=== PATIENT | male | born 2000 | race Two or more races ===

== ENCOUNTER 2020-07-31 20:01 | Emergency (ER) | payer MEDICAID, OTHER ==
[~2020-07-31] VITALS: Ht 175.3 cm; Wt 63.5 kg
[2020-07-31 21:00] VITALS: BP 107/67
[2020-07-31] MEDS ORDERED: KETOROLAC TROMETH 60MG/2ML VIAL IM ONE (22:30)
== END 2020-07-31 23:12 | disposition home or self-care (01) ==
LOC: ER 20:03
DX: G44.209 Tension-type headache, unspecified, not intractable (principal); E86.0 Dehydration
CPT/HCPCS: 70450; 96372; 99284; J1885

== ENCOUNTER 2021-11-19 04:18 | Emergency (ER) | payer MEDICAID ==
[~2021-11-19] VITALS: Ht 175.3 cm; Wt 63.5 kg
[2021-11-19] MEDS ORDERED: ACETAMINOPHEN 500 MG TAB PO ONE (04:45)
[2021-11-19] MEDS ORDERED: BENZOCAINE (DENTAL) 20 % SPRAY 60ML MT ONE (04:45)
[2021-11-19] MEDS ORDERED: KETOROLAC TROMETH 60MG/2ML VIAL IM ONE (04:45)
[2021-11-19 04:50] VITALS: BP 144/85
== END 2021-11-19 06:02 | disposition home or self-care (01) ==
LOC: ER 04:18
DX: S02.5XXA Fracture of tooth (traumatic), initial encounter for closed fracture (principal); F17.210 Nicotine dependence, cigarettes, uncomplicated; F12.10 Cannabis abuse, uncomplicated; K04.1 Necrosis of pulp; X58.XXXA Exposure to other specified factors, initial encounter; Y93.89 Activity, other specified; Y92.89 Other specified places as the place of occurrence of the external cause; Y99.8 Other external cause status
CPT/HCPCS: 96372; 99283; J1885